=== PATIENT | male | born 1980 | race Caucasian/White ===

== ENCOUNTER 2016-08-03 22:27 | Emergency (ER) | payer SELFPAY ==
[~2016-08-03] VITALS: Ht 165.1 cm; Wt 90.7 kg
[2016-08-03 22:35] VITALS: BP 150/94; PULSE 82; RESP 18; TEMP 98.2; O2SAT 97
--- NOTE | 2016-08-03 22:55 | NUR ---
Placed in room 04 . Placed on plastics patternmaker, blood pressure machine and pulse oximeter. To gown for exam. Side rails up. Report given to KATHRYN Patrick.
--- NOTE | 2016-08-03 23:00 | NUR ---
PT IS AOX4, C/O HEADACHE X 1 DAY. PT STATED ALSO THAT HE HAS SOME DIZZINESS AND NUMBNESS ON HIS LEFT ARM. PAIN SCALE 8/10.
--- NOTE | 2016-08-03 23:01 | NUR ---
ER Dr.DE SERRANO at bedside examining patient.
[2016-08-03] MEDS ORDERED: KETOROLAC TROMETHAMINE 30 MG VIAL IVP ONE (23:15)
[2016-08-03] MEDS ORDERED: PROCHLORPERAZINE EDISYLATE 10 MG/2 ML VIAL IVP ONE (23:15)
[2016-08-03] MEDS ORDERED: LORazepam 2 MG/ML VIAL (FOR ER USE) IVP ONE (23:15)
[2016-08-03] MEDS ORDERED: DIPHENHYDRAMINE INJ 50 MG/ML VIAL IVP ONE (23:15)
--- NOTE | 2016-08-03 23:20 | NUR ---
# 22 gauge angiocath placed to LEFT HAND . Use of asceptic technique. Opsite placed over site. Blood return noted. Blood for lab drawn from site. Flushed with 10 cc of normal saline. No evidence of infiltration noted. Patient tolerated well.
[2016-08-03 23:33] LABS: BASOPHILS # (AUTO) 0.1 K/uL (0.0-0.2); BASOPHILS % (AUTO) 0.7 % (0.0-2.0); EOSINOPHILS # (AUTO) 0.3 K/uL (0.0-0.4); EOSINOPHILS % (AUTO) 3.4 % (0.0-4.0); HEMATOCRIT 41.3 % (36-54); LYMPHOCYTES # (AUTO) 2.9 K/uL (1.0-5.5); LYMPHOCYTES % (AUTO) 29.9 % (20.5-51.5); MEAN CORPUSCULAR VOLUME 86 fL (79.0-98.0); MONOCYTES # (AUTO) 0.8 K/uL (0.0-1.0); MONOCYTES % (AUTO) 7.9 % (1.7-9.3); NEUTROPHILS # (AUTO) 5.6 K/uL (1.8-7.7); NEUTROPHILS % (AUTO) 58.1 % (40.0-70.0); PLATELET COUNT (AUTO) 210 K/uL (130-430); RED BLOOD CELL COUNT(AUTO) 4.82 MIL/uL (4.2-6.2); RED CELL DISTRIBUTION WIDTH 12.2 % (9.0-15.0); WHITE BLOOD COUNT (AUTO) 9.7 K/uL (4.8-10.8)
[2016-08-03 23:44] LABS: POTASSIUM 3.5 mmol/L (3.5-5.1)
[2016-08-03 23:45] LABS: CREATININE 0.93 mg/dL (0.55-1.30)
[2016-08-04 00:04] LABS: HEMOGLOBIN 14.4 g/dL (14.0-18.0); MEAN CORPUSCULAR HEMOGLOBIN 30 pg (27-31); MEAN CORPUSCULAR HGB CONC 35 % (32-36)
[2016-08-04 00:30] VITALS: BP 136/74; PULSE 82; RESP 18; TEMP 98.2; O2SAT 98
--- NOTE | 2016-08-04 00:30 | NUR ---
Patient given written and verbal discharge instructions and verbalizes understanding. ER MD discussed with patient the results and treatment provided. Patient in stable condition. ID arm band removed. IV catheter removed intact and dressing applied, no active bleeding. Rx of IBUPROFEN 800 MG AND ATIVAN 1 MG given. Patient educated on pain management and to follow up with PMD. Pain Scale 0/10. Opportunity for questions provided and answered.
== END 2016-08-04 00:30 | disposition home or self-care (01) ==
LOC: SED 22:27
DX: G44.209 Tension-type headache, unspecified, not intractable (principal)
CPT/HCPCS: 36415; 80048; 85025; 96374; 96375; 99284; J0780; J1200; J1885; J2060

== ENCOUNTER 2016-11-22 11:15 | Emergency (ER) | payer SELFPAY ==
[~2016-11-22] VITALS: Ht 165.1 cm; Wt 83.9 kg
[2016-11-22 11:20] VITALS: BP_SYST 126
[2016-11-22] MEDS ORDERED: NACL 0.9% 1,000 ML IV ONE (11:37)
[2016-11-22] MEDS ORDERED: PIPERACILLIN/TAZO 3.38 GM in D5W 50 ML IV ONE (11:45)
[2016-11-22] MEDS ORDERED: ONDANSETRON HCL 4 MG/2 ML VIAL IVP ONE (11:45)
[2016-11-22] MEDS ORDERED: MORPHINE 4 MG/ML INJ. SYRINGE IVP ONE (11:45)
[2016-11-22 11:52] LABS: BASOPHILS # (AUTO) 0.1 K/uL (0.0-0.2); BASOPHILS % (AUTO) 0.8 % (0.0-2.0); EOSINOPHILS % (AUTO) 0.1 % (0.0-4.0); HEMOGLOBIN 15.3 g/dL (14.0-18.0); LYMPHOCYTES # (AUTO) 1.1 K/uL (1.0-5.5); LYMPHOCYTES % (AUTO) 9.6 % (20.5-51.5); MEAN CORPUSCULAR HEMOGLOBIN 29 pg (27-31); MEAN CORPUSCULAR HGB CONC 33 % (32-36); MEAN CORPUSCULAR VOLUME 87 fL (79.0-98.0); MONOCYTES # (AUTO) 0.7 K/uL (0.0-1.0); MONOCYTES % (AUTO) 6.2 % (1.7-9.3); NEUTROPHILS # (AUTO) 9.4 K/uL (1.8-7.7); NEUTROPHILS % (AUTO) 83.3 % (40.0-70.0); PLATELET COUNT (AUTO) 168 K/uL (130-430); RED BLOOD CELL COUNT(AUTO) 5.28 MIL/uL (4.2-6.2); RED CELL DISTRIBUTION WIDTH 12.6 % (9.0-15.0); WHITE BLOOD COUNT (AUTO) 11.3 K/uL (4.8-10.8)
[2016-11-22 11:57] LABS: CALCIUM 8.4 mg/dL (8.4-11.0); CREATININE 0.89 mg/dL (0.55-1.30); POTASSIUM 3.6 mmol/L (3.5-5.1)
[2016-11-22 12:01] LABS: ALBUMIN 3.8 g/dL (3.4-4.8); BILIRUBIN,URINE NEGATIVE (NEGATIVE); CLARITY/URINE SL HAZY (CLEAR); COLOR,URINE YELLOW (YELLOW); GLUCOSE,URINE NEGATIVE (NEGATIVE); INR 1.1 (0.80-1.20); KETONES,URINE NEGATIVE (NEGATIVE); LEUKOCYTE ESTERASE ,URINE NEGATIVE (NEGATIVE); NITRITE, URINE NEGATIVE (NEGATIVE); PROTEIN URINE 1+ (NEGATIVE); PROTHROMBIN TIME 11.4 SECS (9.5-12.5); TOTAL BILIRUBIN 0.8 mg/dL (0.0-1.0); TOTAL PROTEIN, SERUM 7.7 g/dL (6.4-8.3); UROBILINOGEN,URINE 0.2 (0.2-1.0)
[2016-11-22 12:02] LABS: BLOOD, URINE TRACE (NEGATIVE)
[2016-11-22 12:15] LABS: RBC,URINE 0-3 /HPF (0-3); WBC,URINE 0-3 /HPF (0-3)
[2016-11-22 12:16] LABS: BACTERIA,URINE FEW /HPF (None Seen); MUCUS,URINE 1+ /LPF (None Seen)
[2016-11-22] MEDS ORDERED: PIPERACILLIN/TAZOBACTAM 3.375 GM/VIAL (ZOSYN) IV ONE (12:27)
[2016-11-22] MEDS ORDERED: MORPHINE 2 MG/ML INJ. SYRINGE IVP ONE ×2 (14:00→16:00)
[2016-11-22 18:07] VITALS: BP_SYST 126
== END 2016-11-22 18:00 | disposition other institution (70) ==
LOC: SED 11:15
DX: R10.84 Generalized abdominal pain (principal); R11.2 Nausea with vomiting, unspecified; R19.7 Diarrhea, unspecified
CPT/HCPCS: 36415; 74176; 80053; 81000; 83605; 83690; 85025; 85610; 85730; 87040; 87086; 96361; 96365; 96367; 96374; 96375; 96376; 99285; J1956; J2270 ×2; J2405; J2543; J7030; J7060